=== PATIENT | female | born 1990 | race African-American/Black ===

== ENCOUNTER 2019-03-19 21:28 | Emergency (ER) | payer OTHER ==
[~2019-03-19] VITALS: Ht 180.3 cm; Wt 68.0 kg
[2019-03-19 21:42] LABS: URINE BILIRUBIN NEGATIVE (Negative); URINE BLOOD NEGATIVE (Negative); URINE CLARITY CLEAR; URINE COLOR YELLOW; URINE GLUCOSE-RANDOM* NEGATIVE (Negative); URINE KETONES NEGATIVE (Negative); URINE LEUKOCYTES-REFLEX TRACE (Negative); URINE NITRITE-REFLEX NEGATIVE (Negative); URINE PROTEIN (DIPSTICK) NEGATIVE (Negative); URINE SPECIFIC GRAVITY 1.015 (1.005-1.035)
[2019-03-19] MEDS ORDERED: NOHOMEMEDICATIONS (22:29)
[2019-03-20] MEDS ORDERED: MOBIC15 MG PO (00:47)
[2019-03-20 00:54] VITALS: BP 122/81
== END 2019-03-20 01:00 | disposition home or self-care (01) ==
LOC: ER 21:28
PROVIDERS: Physician Assistant
DX: R10.2 Pelvic and perineal pain (principal); Z87.440 Personal history of urinary (tract) infections